=== PATIENT | male | born 1935 | race Caucasian/White ===

== ENCOUNTER 2017-04-15 15:31 | Observation (INO) | payer MEDICARE, OTHER ==
[~2017-04-15] VITALS: Ht 170.2 cm; Wt 79.5 kg
[2017-04-15] VITALS (7 sets, daily range): BP systolic 112–169; BP diastolic 60–84; PULSE 51–62; RESP 15–19; TEMP 97.3–97.8; O2SAT 96–100
--- NOTE | 2017-04-15 15:44 | PD ---
Physical Exam Time Seen by Provider: 15:43 Narrative 81 y/o male with intermittent L sided cp, L arm pain over the past 2 days. Vital signs reviewed. Seen at triage desk. Awaiting bed placement. Data Data Last Documented VS Vital Signs Date Time Temp Pulse Resp B/P Pulse Ox O2 Delivery O2 Flow Rate FiO2 04/15/17 15:38 97.8 60 15 165/76 99 MDM Medical Record Reviewed: Yes Supervised Visit with LUCIANO: Thony Moyer Apr 15, 2017 15:44
[2017-04-15 16:20] LABS: AUTOMATED NEUTROPHIL # 4.3 TH/MM3 (1.8-7.7); BASOPHIL # 0.1 TH/MM3 (0-0.2); BASOPHIL % 0.7 % (0.0-2.0); EOSINOPHIL # 0.1 TH/MM3 (0-0.4); EOSINOPHIL % 1.4 % (0.0-4.0); HEMATOCRIT 42.2 % (39.0-51.0); HEMO FLAGS DIFF FINAL; LYMPH % 31.5 % (9.0-44.0); LYMPHOCYTE # 2.3 TH/MM3 (1.0-4.8); MEAN CELL VOLUME 89.9 FL (80.0-100.0); MEAN CORPUSCULAR HEMOGLOBIN 31.3 PG (27.0-34.0); MEAN CORPUSCULAR HGB CONC 34.9 % (32.0-36.0); MONO % 9.1 % (0.0-8.0); NEUT % 57.3 % (16.0-70.0); PLATELET COUNT 133 TH/MM3 (150-450); RED BLOOD COUNT 4.69 MIL/MM3 (4.50-5.90); RED CELL DISTRIBUTION WIDTH 13.7 % (11.6-17.2); WHITE BLOOD COUNT 7.5 TH/MM3 (4.0-11.0)
--- NOTE | 2017-04-15 16:27 | RADRPT ---
EXAM DATE/TIME: 04/15/2017 16:19 [facility] COMPARISON: No previous studies available for comparison. INDICATIONS : Chest pain, left arm pain. 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 SURGICAL HISTORY : None. ENCOUNTER: Initial ACUITY: 1 day PAIN SCORE: 2/10 LOCATION: Left chest FINDINGS: PA and lateral views of the chest demonstrate the lungs to be symmetrically aerated without evidence of mass, infiltrate or effusion. The cardiomediastinal contours are unremarkable. There is degenerat ana change in the spine with moderate kyphoscoliosis noted. CONCLUSION: No acute disease John Lopez MD on April 15, 2017 at 16:24 Board Certified Radiologist. This report was verified electronically.
[2017-04-15 16:33] LABS: APTT (PATIENT) 25.7 SEC (24.3-30.1)
[2017-04-15 16:36] LABS: ANION GAP 9 MEQ/L (5-15); AST (GOT) 24 U/L (15-37); BICARBONATE 25.9 MEQ/L (21.0-32.0); BLOOD UREA NITROGEN 19 MG/DL (7-18); CHLORIDE 107 MEQ/L (98-107); GLOMERULAR FILTRATION RATE 60 ML/MIN (>89); MAGNESIUM 2.4 MG/DL (1.5-2.5); POTASSIUM 4.1 MEQ/L (3.5-5.1); SODIUM (NA) 142 MEQ/L (136-145)
[2017-04-15 16:41] LABS: ALKALINE PHOSPHATASE 69 U/L (45-117); ALT (GPT) 43 U/L (12-78); CREATINE KINASE 233 U/L (39-308); TOTAL BILIRUBIN ADULT 0.6 MG/DL (0.2-1.0)
[2017-04-15 16:53] LABS: CKMB 3.2 NG/ML (0.5-3.6)
[2017-04-15] MEDS ORDERED: CENTCHW3 PO (16:56)
[2017-04-15] MEDS ORDERED: ASCO500W PO (16:56)
[2017-04-15] MEDS ORDERED: SALM10002 PO (16:56)
[2017-04-15] MEDS ORDERED: VYTO10TA8 PO (16:56)
[2017-04-15] MEDS ORDERED: BYST5TAB2 PO (16:57)
[2017-04-15] MEDS ORDERED: NEXI20CA PO (16:58)
[2017-04-15] MEDS ORDERED: ASPI81CH CHEW (16:58)
--- NOTE | 2017-04-15 17:18 | PD ---
HPI Chief Complaint: Chest Pain Time Seen by Provider: 17:08 Travel History International Travel<30 days: No Contact w/Intl Traveler<30days: No Traveled to known affect area: No History of Present Illness HPI Patient is a 81-year-old male presented to our reevaluation of left anterior chest wall pain that radiates to his left arm. He states it's been happening 2- 3 times over the last 4-5 days. Patient reports a history of hypertension, hyperlipidemia, coronary artery disease and Gonzalez's esophagus. He reports that he had a cardiac catheterization 18-20 years ago, he states that he had a blockage at that time but no stent placement. Patient is an avid runner, he run /walks 4-5 miles a day. He does report feeling more short of breath over the last several years. He has a remote smoking history, he quit 35 years ago. He denies any other complaints at this time. The chest pain is not triggered with running. PFSH Past Medical History Cardiac Catheterization: Yes (1996) High Cholesterol: Yes Chest Pain: Yes Coronary Artery Disease: Yes Diminished Hearing: No Gastrointestinal Disorders: Yes (Gonzalez's esophagus) Hypertension: Yes Influenza Vaccination: Yes Past Surgical History Cholecystectomy: Yes (2001) Other Surgery: Yes (TURP X2 ) Social History Alcohol Use: No Tobacco Use: No Substance Use: No Allergies-Medications (Allergen,Severity, Reaction): Coded Allergies: No Known Allergies (Unverified , 04/15/17) Reported Meds & Prescriptions Reported Meds & Active Scripts Active Reported Aspirin 81 Mg Chew 81 Mg CHEW DAILY Nexium (Esomeprazole DR) 20 Mg Capdr 20 Mg PO DAILY Bystolic (Nebivolol) 5 Mg Tab 5 Mg PO DAILY Vytorin (Ezetimibe-Simvastatin) 10-20 Mg Tab 1 Tab PO HS [place] Oil (Nutritional Supplements) 1 Cap Cap 1,200 Mg PO TID Vitamin C 500 mg Wafer (Ascorbic Acid/Ascorbate Sodium) 500 Mg Wafer 1 Chew PO DAILY Centrum Silver (Multiple Vitamins W/ Minerals) 1 Chw Chw 1 Tab PO DAILY Review of Systems Except as stated in HPI: all other systems reviewed are Neg Cardiovascular: Positive: Chest Pain or Discomfort Respiratory: Positive: Shortness of Breath Physical Exam Narrative GENERAL: Well-developed, well-nourished, alert elderly male. Resting comfortably in no acute distress. SKIN: Warm and dry. HEAD: Atraumatic. Normocephalic. EYES: Pupils equal and round. No scleral icterus. No injection or drainage. ENT: No nasal bleeding or discharge. Mucous membranes pink and moist. NECK: Trachea midline. No JVD. CARDIOVASCULAR: Regular rate and rhythm. 2/6 systolic murmur. RESPIRATORY: No accessory muscle use. Clear to auscultation. Breath sounds equal bilaterally. GASTROINTESTINAL: Abdomen soft, non-tender, nondistended. Hepatic and splenic margins not palpable. MUSCULOSKELETAL: Extremities without clubbing, cyanosis, or edema. No obvious deformities. NEUROLOGICAL: Awake and alert. No obvious cranial nerve deficits. Motor grossly within normal limits. Five out of 5 muscle strength in the arms and legs. Normal speech. PSYCHIATRIC: Appropriate mood and affect; insight and judgment normal. Data Data Last Documented VS Vital Signs Date Time Temp Pulse Resp B/P Pulse Ox O2 Delivery O2 Flow Rate FiO2 04/15/17 16:59 58 19 169/80 97 Room Air 04/15/17 15:38 97.8 Orders Electrocardiogram (04/15/17 15:44) B-Type Natriuretic Peptide (04/15/17 15:44) Ckmb (Isoenzyme) Profile (04/15/17 15:44) Complete Blood Count With Diff (04/15/17 15:44) Comprehensive Metabolic Panel (04/15/17 15:44) Magnesium (Mg) (04/15/17 15:44) Prothrombin Time / Inr (Pt) (04/15/17 15:44) Act Partial Throm Time (Ptt) (04/15/17 15:44) Troponin I (04/15/17 15:44) Chest, Pa & Lat (04/15/17 15:44) CKMB (04/15/17 15:55) CKMB% (04/15/17 15:55) Admit Order (Ed Use Only) (04/15/17 17:06) Labs Laboratory Tests Test 04/15/17 15:55 White Blood Count 7.5 TH/MM3 Red Blood Count 4.69 MIL/MM3 Hemoglobin 14.7 GM/DL Hematocrit 42.2 % Mean Corpuscular Volume 89.9 FL Mean Corpuscular Hemoglobin 31.3 PG Mean Corpuscular Hemoglobin 34.9 % Concent Red Cell Distribution Width 13.7 % Platelet Count 133 TH/MM3 Mean Platelet Volume 9.6 FL Neutrophils (%) (Auto) 57.3 % Lymphocytes (%) (Auto) 31.5 % Monocytes (%) (Auto) 9.1 % Eosinophils (%) (Auto) 1.4 % Basophils (%) (Auto) 0.7 % Neutrophils # (Auto) 4.3 TH/MM3 Lymphocytes # (Auto) 2.3 TH/MM3 Monocytes # (Auto) 0.7 TH/MM3 Eosinophils # (Auto) 0.1 TH/MM3 Basophils # (Auto) 0.1 TH/MM3 CBC Comment DIFF FINAL Differential Comment Prothrombin Time 11.0 SEC Prothromb Time International 1.0 RATIO Ratio Activated Partial 25.7 SEC Thromboplast Time Sodium Level 142 MEQ/L Potassium Level 4.1 MEQ/L Chloride Level 107 MEQ/L Carbon Dioxide Level 25.9 MEQ/L Anion Gap 9 MEQ/L Blood Urea Nitrogen 19 MG/DL Creatinine 1.17 MG/DL Estimat Glomerular Filtration 60 ML/MIN Rate Random Glucose 97 MG/DL Calcium Level 9.0 MG/DL Magnesium Level 2.4 MG/DL Total Bilirubin 0.6 MG/DL Aspartate Amino Transf 24 U/L (AST/SGOT) Alanine Aminotransferase 43 U/L (ALT/SGPT) Alkaline Phosphatase 69 U/L Total Creatine Kinase 233 U/L Creatine Kinase MB 3.2 NG/ML Troponin I LESS THAN 0.02 NG/ML B-Type Natriuretic Peptide 81 PG/ML Total Protein 8.0 GM/DL Albumin 4.3 GM/DL MDM Medical Decision Making Medical Screen Exam Complete: Yes Emergency Medical Condition: Yes Interpretation(s) Last Impressions Chest X-Ray 04/15/17 1544 Signed Impressions: Service Date/Time: Saturday, April 15, 2017 16:19 - CONCLUSION: No acute disease John Lopez MD Laboratory Tests Test 04/15/17 15:55 White Blood Count 7.5 TH/MM3 Red Blood Count 4.69 MIL/MM3 Hemoglobin 14.7 GM/DL Hematocrit 42.2 % Mean Corpuscular Volume 89.9 FL Mean Corpuscular Hemoglobin 31.3 PG Mean Corpuscular Hemoglobin 34.9 % Concent Red Cell Distribution Width 13.7 % Platelet Count 133 TH/MM3 Mean Platelet Volume 9.6 FL Neutrophils (%) (Auto) 57.3 % Lymphocytes (%) (Auto) 31.5 % Monocytes (%) (Auto) 9.1 % Eosinophils (%) (Auto) 1.4 % Basophils (%) (Auto) 0.7 % Neutrophils # (Auto) 4.3 TH/MM3 Lymphocytes # (Auto) 2.3 TH/MM3 Monocytes # (Auto) 0.7 TH/MM3 Eosinophils # (Auto) 0.1 TH/MM3 Basophils # (Auto) 0.1 TH/MM3 CBC Comment DIFF FINAL Differential Comment Prothrombin Time 11.0 SEC Prothromb Time International 1.0 RATIO Ratio Activated Partial 25.7 SEC Thromboplast Time Sodium Level 142 MEQ/L Potassium Level 4.1 MEQ/L Chloride Level 107 MEQ/L Carbon Dioxide Level 25.9 MEQ/L Anion Gap 9 MEQ/L Blood Urea Nitrogen 19 MG/DL Creatinine 1.17 MG/DL Estimat Glomerular Filtration 60 ML/MIN Rate Random Glucose 97 MG/DL Calcium Level 9.0 MG/DL Magnesium Level 2.4 MG/DL Total Bilirubin 0.6 MG/DL Aspartate Amino Transf 24 U/L (AST/SGOT) Alanine Aminotransferase 43 U/L (ALT/SGPT) Alkaline Phosphatase 69 U/L Total Creatine Kinase 233 U/L Creatine Kinase MB 3.2 NG/ML Troponin I LESS THAN 0.02 NG/ML B-Type Natriuretic Peptide 81 PG/ML Total Protein 8.0 GM/DL Albumin 4.3 GM/DL Vital Signs Date Time Temp Pulse Resp B/P Pulse Ox O2 Delivery O2 Flow Rate FiO2 04/15/17 16:59 58 19 169/80 97 Room Air 04/15/17 16:41 54 Room Air 04/15/17 15:38 97.8 60 15 165/76 99 Differential Diagnosis ACS versus USA versus CHF versus chest wall pain versus other Narrative Course Patient is 81-year-old male presenting for evaluation of left anterior chest wall pain that radiates to the arm. He has a medical history significant for hypertension, coronary artery disease, hyperlipidemia with a previous heart catheter approximately 20 years ago and per his report showed blockages but he was not stented. Patient's vital signs are stable, labs and imaging were ordered while patient was waiting in triage. Chest x-ray shows no acute disease CBC with no acute findings Chemistry with no acute findings BNP is 81 Cardiac enzymes are negative 1 set EKG reviewed by my attending shows sinus bradycardia with a rate of 54, 1st degree AV block. Patient will be placed in the chest pain center. Patient and agreeable. Admitting orders placed. Diagnosis Primary Impression: Chest pain Qualified Code: R07.9 - Chest pain, unspecified type Admitting Information Admitting Physician Requests: Observation Condition: Stable Saadia Boss Apr 15, 2017 17:18
[2017-04-15] MEDS ORDERED: SODIUM CHLORIDE 0.9% FLUSH 10 ML FLUSH IV FLUSH PRN (17:30)
[2017-04-15] MEDS ORDERED: ACETAMINOPHEN 500 MG CPLT PO PRN (17:30)
[2017-04-15] MEDS ORDERED: NITROGLYCERIN 0.4 MG SL 25 TABS/BTL SL PRN (17:30)
[2017-04-15] MEDS ORDERED: ONDANSETRON HCL 4 MG/2 ML VIAL IV PRN (17:30)
--- NOTE | 2017-04-15 18:46 | HHI.HP ---
[facility] Primary Care Physician Atilio Lopez M.D. Chief Complaint Chest pain History of Present Illness 81-year-old male with history of coronary artery disease and borderline diabetic presents to emergency room for further evaluation of chest pain. Onset 3 days ago. Location left anterior chest with radiation to left arm. Finger point location of left anterior chest. Unable to describe pain stating "it just hurts." Duration 23 minutes. Total episodes over the past week 30 40 times. Nonexertional. Notices discomfort more so at rest. No associated symptoms of shortness of breath, nausea, vomiting, or diaphoresis. No known precipitating factors relieving factors seems to be when he moves his arm and extends his fingers. He is an avid runner and has continued to run this past week denying any exertional chest or arm pain. Review of Systems General: No fatigue,weakness, fever, chills, or recent illness. Has been his general state of health. Continues to run/walk 5 miles daily. HEENT: No [place] CV: As stated above. Denies any current chest pain or pressure. No palpitations, intermittent leg pain, or dizziness RESP: No SOB or cough GI: No nausea, vomiting, bowel changes, diarrhea, constipation, pain, or distention. No change in appetite. No unintentional weight loss or gain. Reports #15 weight gain over last few years due to poor eating habits. : No dysuria. TURP 3 months ago, prior TURP 12 years ago. Denies any concerns over recent procedure and has follow up appointment later this well. EXT: No lower leg edema. Bilateral lower extremity neuropathy beginning at knees. MS: No discomfort or change in ROM. NEURO: No difficulty with balance, LOC, motor/sensory deficits SKIN: No rashes, no concerning lesions Past Family Social History Allergies: Coded Allergies: No Known Allergies (Unverified , 04/15/17) Past Medical History CAD, diabetes(borderline), neuropathy, Gonzalez's esophagus Past Surgical History Cholecystectomy, TURP 2 (12 years ago and 3 months ago) Reported Medications Active Reported Aspirin 81 Mg Chew 81 Mg CHEW DAILY Nexium (Esomeprazole DR) 20 Mg Capdr 20 Mg PO DAILY Bystolic (Nebivolol) 5 Mg Tab 5 Mg PO DAILY Vytorin (Ezetimibe-Simvastatin) 10-20 Mg Tab 1 Tab PO HS [place] Oil (Nutritional Supplements) 1 Cap Cap 1,200 Mg PO TID Vitamin C 500 mg Wafer (Ascorbic Acid/Ascorbate Sodium) 500 Mg Wafer 1 Chew PO DAILY Centrum Silver (Multiple Vitamins W/ Minerals) 1 Chw Chw 1 Tab PO DAILY Metamucil each morning Active Ordered Medications Current Medications Medications (Trade) Dose Ordered Sig/Jono Route Start Time Stop Time Status Last Admin (NS Flush) 2 ml UNSCH PRN IV FLUSH 04/15/17 17:30 (NS Flush) 2 ml BID IV FLUSH 04/15/17 21:00 (Tylenol) 500 mg Q4H PRN PO 04/15/17 17:30 (Zofran Inj) 4 mg Q6H PRN IV 04/15/17 17:30 (Nitrostat Sl) 0.4 mg Q5M PRN SL 04/15/17 17:30 (Aspirin) 325 mg DAILY PO 04/16/17 09:00 Family History Noncontributory for early onset cardiovascular disease Social History No known hypertension. Known hyperlipidemia and has been told he has a borderline diabetic. Quit smoking 40 years ago. Rare alcohol use. Denies any drug use. Active lifestyle. Runs 5 miles daily, sometimes having to walk. Has ran multiple races and marathons and continues to do so. Past cardiac testing No recent stress testing. 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 Cardiac [id number] years ago. Reports 70% blockage no intervention required. No past heart attack, angioplasty, or cardiac stents. In fact, states few years after initial cardiac catheterization he was told blockages have improved. Physical Exam Vital Signs Vital Signs Date Time Temp Pulse Resp B/P Pulse Ox O2 Delivery O2 Flow Rate FiO2 04/15/17 16:59 58 19 169/80 97 Room Air 04/15/17 16:41 54 Room Air 04/15/17 15:38 97.8 60 15 165/76 99 Physical Exam GENERAL: Alert WN, WD, NAD, pleasant, male who appears younger than stated age HEAD: NC, AT NECK: Supple, no masses, trachea midline CV: RRR, 1/6 systolic murmur, rub, gallop, no JVD, S1-S2 no S3-S4. No carotid bruits. RESP: Clear lungs throughout bilateral, no crackles, wheeze, rhonchi, symmetrical chest rise, nonlabored, able to speak in full sentences ABD: Soft, NT, ND, no masses, positive bowel tones BACK: No CVAT EXT: Pulses +24, no dependent edema MS: Normal tone 4 extremities, nontender, no obvious deformities, full range of motion NEURO: CN II through CN XII grossly intact, motor strength 5/5, gait WNL PSYCH: A+O 3, pleasant affect, appropriate speech, appropriate mood and affect , insight and judgment SKIN: Normal turgor, normal texture, no lesions, no rashes, brisk cap refill Laboratory Laboratory Tests Test 04/15/17 15:55 White Blood Count 7.5 Red Blood Count 4.69 Hemoglobin 14.7 Hematocrit 42.2 Mean Corpuscular Volume 89.9 Mean Corpuscular Hemoglobin 31.3 Mean Corpuscular Hemoglobin 34.9 Concent Red Cell Distribution Width 13.7 Platelet Count 133 Mean Platelet Volume 9.6 Neutrophils (%) (Auto) 57.3 Lymphocytes (%) (Auto) 31.5 Monocytes (%) (Auto) 9.1 Eosinophils (%) (Auto) 1.4 Basophils (%) (Auto) 0.7 Neutrophils # (Auto) 4.3 Lymphocytes # (Auto) 2.3 Monocytes # (Auto) 0.7 Eosinophils # (Auto) 0.1 Basophils # (Auto) 0.1 CBC Comment DIFF FINAL Differential Comment Prothrombin Time 11.0 Prothromb Time International 1.0 Ratio Activated Partial 25.7 Thromboplast Time Sodium Level 142 Potassium Level 4.1 Chloride Level 107 Carbon Dioxide Level 25.9 Anion Gap 9 Blood Urea Nitrogen 19 Creatinine 1.17 Estimat Glomerular Filtration 60 Rate Random Glucose 97 Calcium Level 9.0 Magnesium Level 2.4 Total Bilirubin 0.6 Aspartate Amino Transf 24 (AST/SGOT) Alanine Aminotransferase 43 (ALT/SGPT) Alkaline Phosphatase 69 Total Creatine Kinase 233 Creatine Kinase MB 3.2 Troponin I LESS THAN 0.02 B-Type Natriuretic Peptide 81 Total Protein 8.0 Albumin 4.3 Result Diagram: 04/15/17 1555 04/15/17 1555 Imaging Last Impressions Chest X-Ray 04/15/17 1544 Signed Impressions: Service Date/Time: Saturday, April 15, 2017 16:19 - CONCLUSION: No acute disease John Lopez MD Course EKG First-degree AV block, normal sinus bradycardia, no ST segment or T-wave changes Assessment and Plan Assessment and Plan #1 Chest painadmitted to chest pain center. Will rule out with serial EKGs, cardiac enzymes, and monitored overnight. Will be seen and evaluated by Dr. Mario Dillon in a.m. If ruled out, discussed in length possible stress test in a.m. Patient is agreeable to plan a care. #2 Hyperlipidemiacontinue Vytorin #3 Gonzalez's esophagus-continue Nexium #4 Hypertension-continue to monitor, patient reports he normally is hypotensive #5 CAD-continue Bystolic and aspirin Rachel Clements Apr 15, 2017 18:46
[2017-04-15 19:48] LABS: CREATINE KINASE 211 U/L (39-308)
[2017-04-15 20:00] LABS: CKMB 2.9 NG/ML (0.5-3.6)
[2017-04-15] MEDS: SODIUM CHLORIDE 0.9% FLUSH 10 ML FLUSH IV FLUSH SCH (21:00)
[2017-04-15] MEDS ORDERED: NON-FORMULARY DRUG (Ezetimibe-Simvastatin (Vytorin) 1 TAB) PO SCH (21:00)
[2017-04-15 22:41] LABS: CREATINE KINASE 197 U/L (39-308)
[2017-04-15 22:54] LABS: CKMB 2.7 NG/ML (0.5-3.6)
[2017-04-16 00:28] VITALS: PULSE 49
[2017-04-16 04:05] VITALS: PULSE 56
[2017-04-16 05:22] VITALS: BP 117/58; PULSE 52; RESP 16; TEMP 98.3; O2SAT 96
[2017-04-16 08:00] VITALS: BP 148/73; PULSE 56; RESP 18; TEMP 98.1; O2SAT 93
[2017-04-16] MEDS ORDERED: ASCORBIC ACID 500 MG TAB PO SCH (09:00)
[2017-04-16] MEDS ORDERED: PANTOPRAZOLE SOD 20 MG DELAYED RELEASE TAB PO SCH (09:00)
[2017-04-16] MEDS ORDERED: NEBIVOLOL 5 MG TAB PO SCH (09:00)
[2017-04-16] MEDS ORDERED: MULTIVITAMIN TAB PO SCH (09:00)
[2017-04-16] MEDS ORDERED: ASPIRIN 325 MG TAB PO SCH (09:00)
--- NOTE | 2017-04-16 11:21 | RADRPT ---
EXAM DATE/TIME: 04/16/2017 08:58 [facility] COMPARISON: No previous studies available for comparison. INDICATIONS : Chest pain and left arm pain. Angina DOSE: 25.6 mCi Tc99m Myoview at stress 8.6 mCi Tc99m Myoview at rest REST HEART RATE: 70 BPM TARGET HEART RATE: 120 BPM MAX HEART RATE: 142 BPM REST BLOOD PRESSURE: 138/78 mmHg MAX BLOOD PRESSURE: 188/78 mmHg EJECTION FRACTION: 61% MEDICAL HISTORY : Diabetes mellitus type 2. Cardiovascular disease SURGICAL HISTORY : Cholecystectomy. ENCOUNTER: Initial ACUITY: 3 days PAIN SCALE: 0/10 LOCATION: Bilateral chest TECHNIQUE: The patient underwent upright treadmill exercise in the chest pain center. Continuous ECG tracing wa s monitored during stress. Gated SPECT imaging was performed after stress, and conventional SPECT im aging was performed at rest. The examination was performed on a SPECT/CT scanner, both attenuation-c orrected and non-corrected datasets were reviewed. FINDINGS: DISTRIBUTION: The maximum perfused segment at stress is in the anterior wall wall. PERFUSION STUDY: Is a small area of mildly diminished relative perfusion involving the anteroapical region. There is n o evidence of redistribution. GATED STUDY: There is intact wall motion and thickening without hypokinetic or dyskinetic segments. CONCLUSION: Probably normal exam RISK CATEGORY: Low (<1% Annual Mortality Rate) John Lopez MD on April 16, 2017 at 11:17 Board Certified Radiologist. This report was verified electronically.
--- NOTE | 2017-04-16 11:31 | HHI.DCPOC ---
Discharge Care Plan Diagnosis: (1) Chest pain (2) Hypertension (3) Hyperlipidemia (4) DM (diabetes mellitus) (5) CAD (coronary artery disease) Goals to Promote Your Health * To prevent worsening of your condition and complications * To maintain your health at the optimal level Directions to Meet Your Goals Take your medications as prescribed Follow your dietary instruction Follow activity as directed Keep your appointments as scheduled Take your immunizations and boosters as scheduled If your symptoms worsen call your PCP, if no PCP go to Urgent Care Center or Emergency Room Smoking is Dangerous to Your Health. Avoid second hand smoke Call the 24-hour hour crisis hotline for domestic abuse at Jose Horan Apr 16, 2017 11:31
[2017-04-16] MEDS: SODIUM CHLORIDE 0.9% FLUSH 10 ML FLUSH IV FLUSH SCH (11:46)
[2017-04-16 12:04] VITALS: PULSE 59
--- NOTE | 2017-04-16 15:40 | EKG ---
Date Performed: 04/15/2017 Time Performed: 21:45:23 PTAGE: 81 years EKG: SINUS BRADYCARDIA WITH FIRST DEGREE AV BLOCK MODERATE INTRAVENTRICULAR CONDUCTION DELAY PRO LONGED QT INTERVAL ABNORMAL ECG PREVIOUS TRACING : 04/15/2017 19.08 Since previous tracing, no significant change noted DOCTOR: Mario Dillon Interpretating Date/Time 04/16/2017 15:38:40
--- NOTE | 2017-04-16 15:41 | EKG ---
Date Performed: 04/15/2017 Time Performed: 19:08:33 PTAGE: 81 years EKG: SINUS BRADYCARDIA POSSIBLE LATERAL MYOCARDIAL INFARCTION BORDERLINE ECG NO PREVIOUS TRACING DOCTOR: Mario Dillon Interpretating Date/Time 04/16/2017 15:39:16
--- NOTE | 2017-04-16 15:41 | EKG ---
Date Performed: 04/15/2017 Time Performed: 16:33:54 PTAGE: 81 years EKG: SINUS BRADYCARDIA WITH FIRST DEGREE AV BLOCK MODERATE INTRAVENTRICULAR CONDUCTION DELAY MIN IMAL VOLTAGE CRITERIA FOR LVH, CONSIDER NORMAL VARIANT PROLONGED QT INTERVAL ABNORMAL ECG NO PREVIOUS TRACING DOCTOR: Mario Dillon Interpretating Date/Time 04/16/2017 15:39:46
--- NOTE | 2017-04-16 15:47 | TR ---
Date Performed: 04/16/2017 Time Performed: 09:53:21 DOCTOR: Mario Dillon DRUG LIST: CLINICAL HISTORY: CHEST PAIN REASON FOR TEST: REASON FOR ENDING: OBSERVATION: CONCLUSION: NUCLEAER ETT ESTEVAN PROTOCOL. NO CP. PATINET WAS SOB. OCCASIOINAL PVCS. Maximum HR=14 2 % Max HR Gteptiyy=828.0% % Target HR Kwxvypor=748.0% Maximum UZ=489/80 Total Exercise Time=7:45 COMMENTS: Radionuclide was injected one minute prior to ending test. Nuclear imaging and interp retation are pending. No ECG changes to suggest ischemia
[2017-04-16] MEDS ORDERED: EZETIMIBE 10 MG TAB PO SCH (21:00)
[2017-04-16] MEDS ORDERED: PRAVASTATIN SOD 40 MG TAB PO SCH (21:00)
== END 2017-04-16 15:09 | disposition home or self-care (01) ==
LOC: NEPC 15:31 → NEDA 17:08 → NEPGCP 19:35
PROVIDERS: ADMIT Internal Medicine Interventional Cardiology; ATTEND Internal Medicine Interventional Cardiology
DX: R07.89 Other chest pain (principal); I10 Essential (primary) hypertension; E78.5 Hyperlipidemia, unspecified; E11.9 Type 2 diabetes mellitus without complications; I25.10 Atherosclerotic heart disease of native coronary artery without angina pectoris; K22.70 Barrett's esophagus without dysplasia; I44.0 Atrioventricular block, first degree; Z87.891 Personal history of nicotine dependence; Z79.82 Long term (current) use of aspirin; Z79.899 Other long term (current) drug therapy
CPT/HCPCS: 71020; 78452; 80053; 82550; 82552; 83735; 83880; 84484; 85025; 85610; 85730; 93005; 93017; 99285; A9502; G0378

== ENCOUNTER 2017-05-26 15:31 | Emergency (ER) | payer MEDICARE, OTHER ==
[~2017-05-26] VITALS: Ht 170.2 cm; Wt 78.0 kg
[~2017-05-26 15:31] MED LIST: ASCO500W PO; ASPI81CH CHEW; BYST5TAB2 PO; CENTCHW3 PO; NEXI20CA PO; SALM10002 PO; VYTO10TA8 PO
[2017-05-26 15:34] VITALS: BP 154/75; PULSE 63; RESP 13; TEMP 98.5; O2SAT 95
--- NOTE | 2017-05-26 16:15 | PD ---
HPI . wants a brain scan Chief Complaint: Medical Clearance Time Seen by Provider: 16:15 Travel History International Travel<30 days: No Contact w/Intl Traveler<30days: No Traveled to known affect area: No History of Present Illness HPI 81-year-old male with history of hypertension, hyperlipidemia, CAD here with complaints of his head feeling hot. Patient is requesting a brain scan. He has brought in the documents that are over 3 pages long and have detailed out several issues he's been experiencing. I have read over all the documentation. Apparently patient is in between primary care providers and is wanting to get many of his primary care issues addressed. #1 he would like to know why he feels hot when going outside. #2 he has these embedded kidney stones that he would like us to assess, #3 he thinks he has diabetes and would like a screening test, #4 he thinks that he may have prostate cancer and had a TURP done in the past that was likely not the proper treatment, #5 he would like to have his body temperature assessed and figure out why it's always low, #6 he would like to know why he has a low heart rate (on bystolic), #7 he would also like to know why he is unable to sleep, #8 he would like to know why he can no longer run as he used to, #9 he would like to know why he bruises easily and lastly he would like to know if he needs an antidepressant. Patient tells me that he thinks he may have suffered a stroke one night when he felt a jolt while sleeping. He says for months he has been getting hot while going outside and this is his primary concern. He denies any syncope, chest pain, sob, dizziness or headache. He says he just feels a hot sensation. I have gone through an entire review of systems and patient has no other issues. He denies any fever, chills, nausea, vomiting, diaphoresis, chest pain , shortness of breath or abdominal pain. He is really adamant about getting a CT scan of his brain. He feels that if he doesn't get this CT scan of his brain that he may . PFSH Past Medical History Cardiac Catheterization: Yes (1996) High Cholesterol: Yes Chest Pain: Yes Coronary Artery Disease: Yes Diminished Hearing: No Gastrointestinal Disorders: Yes (Gonzalez's esophagus) Hypertension: Yes Past Surgical History Cholecystectomy: Yes (2001) Other Surgery: Yes (TURP X2 ) Social History Alcohol Use: No Tobacco Use: No Substance Use: No Allergies-Medications (Allergen,Severity, Reaction): Coded Allergies: No Known Allergies (Unverified , 04/15/17) Reported Meds & Prescriptions Reported Meds & Active Scripts Active Reported Aspirin 81 Mg Chew 81 Mg CHEW DAILY Nexium (Esomeprazole DR) 20 Mg Capdr 20 Mg PO DAILY Bystolic (Nebivolol) 5 Mg Tab 5 Mg PO DAILY Vytorin (Ezetimibe-Simvastatin) 10-20 Mg Tab 1 Tab PO HS Troy Oil (Nutritional Supplements) 1 Cap Cap 1,200 Mg PO TID Vitamin C 500 mg Wafer (Ascorbic Acid/Ascorbate Sodium) 500 Mg Wafer 1 Chew PO DAILY Centrum Silver (Multiple Vitamins W/ Minerals) 1 Chw Chw 1 Tab PO DAILY Review of Systems General / Constitutional: No: Fever Eyes: No: Visual changes HENT: No: Headaches Cardiovascular: No: Chest Pain or Discomfort Respiratory: No: Shortness of Breath Gastrointestinal: No: Abdominal Pain Genitourinary: No: Dysuria Musculoskeletal: No: Pain Skin: No Rash Neurologic: Positive: Other (head feels hot when going outside), No: Weakness Psychiatric: No: Depression Endocrine: No: Polydipsia Hematologic/Lymphatic: No: Easy Bruising Physical Exam Narrative GENERAL: AAO x 3, no acute distress, Well-nourished, well-developed patient. SKIN: Warm and dry. No visible rashes or bruising. HEAD: Normocephalic and atraumatic. EYES: No scleral icterus. No injection or drainage. EOM intact, PERRLA ENT: No nasal drainage noted. Mucous membranes pink. Airway patent. NECK: Supple, trachea midline. No JVD. CARDIOVASCULAR: Regular rate and rhythm without murmurs, gallops, or rubs. RESPIRATORY: Breath sounds equal bilaterally. No accessory muscle use. No rhonchi or rales. GASTROINTESTINAL: Abdomen soft, non-tender, nondistended. no rebound or guarding , no vicente's sign, no mcburney point tenderness EXTREMITIES: No cyanosis or edema. BACK: Nontender without obvious deformity. No CVA tenderness. NEURO: CN II-12 intact, computer aided drafter strength normal b/l, UE and LE 5/5, no focal deficits PSYCH: AAO x 3, extremely anxious Data Data Last Documented VS Vital Signs Date Time Temp Pulse Resp B/P (MAP) Pulse Ox O2 Delivery O2 Flow Rate FiO2 05/26/17 15:34 98.5 63 13 154/75 (101) 95 Orders Orders Complete Blood Count With Diff (05/26/17 16:30) Comprehensive Metabolic Panel (05/26/17 16:30) Ct Brain W/O Iv Contrast(Rout) (05/26/17 ) Electrocardiogram (05/26/17 ) Labs Laboratory Tests Test 05/26/17 16:40 White Blood Count 6.0 TH/MM3 Red Blood Count 4.27 MIL/MM3 Hemoglobin 13.4 GM/DL Hematocrit 38.8 % Mean Corpuscular Volume 91.0 FL Mean Corpuscular Hemoglobin 31.3 PG Mean Corpuscular Hemoglobin Concent 34.4 % Red Cell Distribution Width 13.5 % Platelet Count 123 TH/MM3 Mean Platelet Volume 9.3 FL Neutrophils (%) (Auto) 53.4 % Lymphocytes (%) (Auto) 34.2 % Monocytes (%) (Auto) 9.0 % Eosinophils (%) (Auto) 2.6 % Basophils (%) (Auto) 0.8 % Neutrophils # (Auto) 3.2 TH/MM3 Lymphocytes # (Auto) 2.1 TH/MM3 Monocytes # (Auto) 0.5 TH/MM3 Eosinophils # (Auto) 0.2 TH/MM3 Basophils # (Auto) 0.0 TH/MM3 CBC Comment DIFF FINAL Differential Comment Blood Urea Nitrogen 15 MG/DL Creatinine 0.94 MG/DL Random Glucose 97 MG/DL Total Protein 7.1 GM/DL Albumin 3.7 GM/DL Calcium Level 8.5 MG/DL Alkaline Phosphatase 76 U/L Aspartate Amino Transf (AST/SGOT) 24 U/L Alanine Aminotransferase (ALT/SGPT) 40 U/L Total Bilirubin 0.2 MG/DL Sodium Level 140 MEQ/L Potassium Level 3.7 MEQ/L Chloride Level 107 MEQ/L Carbon Dioxide Level 26.7 MEQ/L Anion Gap 6 MEQ/L Estimat Glomerular Filtration Rate 77 ML/MIN [facility] Medical Decision Making Medical Screen Exam Complete: Yes Emergency Medical Condition: Yes Medical Record Reviewed: Yes Differential Diagnosis old CVA, anxiety, depression, Narrative Course 81 yr old male here with numerous issues. His primary concern is his head feeling hot and him worried about a stroke. I have ordered some baseline labs, EKG and CT scan of the brain. I explained to him that many of these issues needs to be addressed with his PCP and I understand he is in between providers. I explained that I would be able to check labs, EKG, CT and CT brain. Laboratory Tests Test 05/26/17 16:40 White Blood Count 6.0 TH/MM3 Red Blood Count 4.27 MIL/MM3 Hemoglobin 13.4 GM/DL Hematocrit 38.8 % Mean Corpuscular Volume 91.0 FL Mean Corpuscular Hemoglobin 31.3 PG Mean Corpuscular Hemoglobin Concent 34.4 % Red Cell Distribution Width 13.5 % Platelet Count 123 TH/MM3 Mean Platelet Volume 9.3 FL Neutrophils (%) (Auto) 53.4 % Lymphocytes (%) (Auto) 34.2 % Monocytes (%) (Auto) 9.0 % Eosinophils (%) (Auto) 2.6 % Basophils (%) (Auto) 0.8 % Neutrophils # (Auto) 3.2 TH/MM3 Lymphocytes # (Auto) 2.1 TH/MM3 Monocytes # (Auto) 0.5 TH/MM3 Eosinophils # (Auto) 0.2 TH/MM3 Basophils # (Auto) 0.0 TH/MM3 CBC Comment DIFF FINAL Differential Comment Blood Urea Nitrogen 15 MG/DL Creatinine 0.94 MG/DL Random Glucose 97 MG/DL Total Protein 7.1 GM/DL Albumin 3.7 GM/DL Calcium Level 8.5 MG/DL Alkaline Phosphatase 76 U/L Aspartate Amino Transf (AST/SGOT) 24 U/L Alanine Aminotransferase (ALT/SGPT) 40 U/L Total Bilirubin 0.2 MG/DL Sodium Level 140 MEQ/L Potassium Level 3.7 MEQ/L Chloride Level 107 MEQ/L Carbon Dioxide Level 26.7 MEQ/L Anion Gap 6 MEQ/L Estimat Glomerular Filtration Rate 77 ML/MIN Last Impressions Head CT 05/26/17 0000 Signed Impressions: Service Date/Time: Friday, May 26, 2017 16:47 - CONCLUSION: 1. No acute intracranial abnormality is identified. Maynor Corado MD I have discussed the case with my attending Dr. Martinez. We recommend outpatient f/u. I discussed the results with the patient. He is asking if he should start an antidepressant. He tells me he does not think he is depressed. He denies suicide or homicide ideation. I recommend outpatient f/u. Patient verbalized understanding of instructions, questions were answered, and thanked me for their care. I advised them if their condition worsens, please return to the nearest emergency room for further care. Diagnosis Primary Impression: Cephalgia Qualified Codes: R51 - Headache Patient Instructions: General Instructions Additional Instructions: Please return to emergency department if your symptoms return or worsen. Follow up with your primary care provider. Disposition: 01 DISCHARGE HOME Condition: Stable Nilda Mcfarlane May 26, 2017 16:15
[2017-05-26 16:51] LABS: AUTOMATED NEUTROPHIL # 3.2 TH/MM3 (1.8-7.7); BASOPHIL % 0.8 % (0.0-2.0); EOSINOPHIL # 0.2 TH/MM3 (0-0.4); EOSINOPHIL % 2.6 % (0.0-4.0); HEMATOCRIT 38.8 % (39.0-51.0); HEMO FLAGS DIFF FINAL; LYMPH % 34.2 % (9.0-44.0); LYMPHOCYTE # 2.1 TH/MM3 (1.0-4.8); MEAN CORPUSCULAR HEMOGLOBIN 31.3 PG (27.0-34.0); MEAN CORPUSCULAR HGB CONC 34.4 % (32.0-36.0); NEUT % 53.4 % (16.0-70.0); PLATELET COUNT 123 TH/MM3 (150-450); RED BLOOD COUNT 4.27 MIL/MM3 (4.50-5.90); RED CELL DISTRIBUTION WIDTH 13.5 % (11.6-17.2)
--- NOTE | 2017-05-26 17:09 | RADRPT ---
EXAM DATE/TIME: 05/26/2017 16:47 [facility] COMPARISON: No previous studies available for comparison. INDICATIONS : General weakness for one week RADIATION DOSE: 56.35 CTDIvol (mGy) MEDICAL HISTORY : Hypertension. Cardiovascular disease SURGICAL HISTORY : cardiac catheterization ENCOUNTER: Initial ACUITY: 1 day PAIN SCALE: 3/10 LOCATION: Bilateral head TECHNIQUE: Multiple contiguous axial images were obtained of the head. Using automated exposure control and adj ustment of the mA and/or kV according to patient size, radiation dose was kept as low as reasonably a chievable to obtain optimal diagnostic quality images. DICOM format image data is available electro nically for review and comparison. FINDINGS: CEREBRUM: The ventricles are normal for age. No evidence of midline shift, mass lesion, hemorrhage or acute in farction. No extra-axial fluid collections are seen. POSTERIOR FOSSA: The cerebellum and brainstem are intact. The 4th ventricle is midline. The cerebellopontine angle i s unremarkable. EXTRACRANIAL: The visualized portion of the orbits is intact. SKULL: The calvaria is intact. No evidence of skull fracture. CONCLUSION: 1. No acute intracranial abnormality is identified. Maynor Corado MD on May 26, 2017 at 17:06 Board Certified Radiologist. This report was verified electronically.
[2017-05-26 17:11] LABS: ALKALINE PHOSPHATASE 76 U/L (45-117); TOTAL BILIRUBIN ADULT 0.2 MG/DL (0.2-1.0)
[2017-05-26 17:12] LABS: ALT (GPT) 40 U/L (12-78); ANION GAP 6 MEQ/L (5-15); AST (GOT) 24 U/L (15-37); BICARBONATE 26.7 MEQ/L (21.0-32.0); BLOOD UREA NITROGEN 15 MG/DL (7-18); CHLORIDE 107 MEQ/L (98-107); GLOMERULAR FILTRATION RATE 77 ML/MIN (>89); POTASSIUM 3.7 MEQ/L (3.5-5.1); SODIUM (NA) 140 MEQ/L (136-145)
--- NOTE | 2017-05-27 14:14 | EKG ---
Date Performed: 05/26/2017 Time Performed: 17:24:01 PTAGE: 81 years EKG: SINUS BRADYCARDIA WITH FIRST DEGREE AV BLOCK MODERATE INTRAVENTRICULAR CONDUCTION DELAY ABN ORMAL ECG Compared to prior tracing no significant change PREVIOUS TRACING : 04/15/2017 21.45 DOCTOR: Servando Cohn Interpretating Date/Time 05/27/2017 14:10:32
== END 2017-05-26 18:26 | disposition home or self-care (01) ==
LOC: NEPD 15:31
DX: R51 Headache (principal); I10 Essential (primary) hypertension; I25.10 Atherosclerotic heart disease of native coronary artery without angina pectoris
CPT/HCPCS: 70450; 80053; 85025; 93005; 99285